=== PATIENT | female | born 1960 | race Caucasian/White ===

== ENCOUNTER 2020-09-02 09:26 | Outpatient (RCR) | payer BC ==
[~2020-09-02] VITALS: Ht 170.2 cm; Wt 78.6 kg
[2020-09-02] MEDS ORDERED: SIMV20TA26 PO (12:21)
[2020-09-02] MEDS ORDERED: BUPR-42 PO (12:21)
[2020-09-02] MEDS ORDERED: MIRA25TA PO (12:21)
[2020-09-02] MEDS ORDERED: CHOL10002 PO (12:21)
[2020-09-02] MEDS ORDERED: ESCI10TA PO (12:21)
[2020-09-02] MEDS ORDERED: OMEP40CA27 PO (12:21)
[2020-09-02] MEDS ORDERED: MELO15TA39 PO (12:21)
== END 2020-09-02 12:39 | disposition home or self-care (01) ==
LOC: PREOP 09:26
PROVIDERS: ATTEND Surgery
DX: Z01.818 Encounter for other preprocedural examination (principal)

== ENCOUNTER → 2020-09-04 | Outpatient (CLI) | payer BC ==
[~2020-09-04] MED LIST: BUPR-42 PO; CHOL10002 PO; ESCI10TA PO; MELO15TA39 PO; MIRA25TA PO; OMEP40CA27 PO; SIMV20TA26 PO
== END ==
LOC: LAB FS 10:20
PROVIDERS: ATTEND Surgery
DX: Z01.812 Encounter for preprocedural laboratory examination (principal); Z20.828 Contact with and (suspected) exposure to other viral communicable diseases
CPT/HCPCS: 87635

== ENCOUNTER 2020-09-07 09:14 | Day surgery (SDC) | payer BC ==
[~2020-09-07] VITALS: Ht 170.2 cm; Wt 78.6 kg
[2020-09-07] MEDS ORDERED: LACTATED RINGERS 1,000 ML IV ONE (09:27)
[2020-09-07] MEDS ORDERED: LACTATED RINGERS 1,000 ML IV STA (09:27)
[2020-09-07 09:30] VITALS: BP 147/94
[2020-09-07] MEDS ORDERED: HURRICAINE EXT TUBE (BENZOCAINE) XX PRN (09:30)
--- NOTE | 2020-09-07 10:02 | Progress Note-Pre Operative ---
Pre-Operative Progress Note H&P Reviewed The H&P was reviewed, patient examined and no changes noted. Time Seen by Provider: 10:00 Date H&P Reviewed: Sep 07, 2020 Time H&P Reviewed: 10:00 Pre-Operative Diagnosis: Epigastric Abd pain RAHEL MASON DO Sep 07, 2020 10:02
[2020-09-07] MEDS ORDERED: MIDAZOLAM 2 MG/2 ML (VERSED) VIAL ONE (10:30)
[2020-09-07] MEDS ORDERED: proPOfol 200 MG/20 ML (DIPRIVAN) VIAL IV ONE (10:30)
[2020-09-07] MEDS ORDERED: LIDOCAINE PF 2% 5 ML (XYLOCAINE) VIAL ONE (10:32)
[2020-09-07 10:50] VITALS: BP 119/70
[2020-09-07 10:55] VITALS: BP 122/76
--- NOTE | 2020-09-07 10:55 | Progress Note-Post Operative ---
Post-Operative Progess Note Surgeon (s)/Branding Machine Tender (s) Surgeon RAHEL MASON DO Branding Machine Tender: none Pre-Operative Diagnosis Epigastric Abd pain Post-Operative Diagnosis Gastritis Hiatal Hernia Procedure & Operative Findings Date of Procedure 09/07/20 Procedure Performed/Findings EGD with bx Anesthesia Type IV sedation by DRUG ABUSE WORKER Estimated Blood Loss Estimated blood loss (mL): scant Specimens/Packing Specimens Removed antral bx body of stomach bx GE jxn bx RAHEL MASON DO Sep 07, 2020 10:55
--- NOTE | 2020-09-07 10:55 | Endoscopy Discharge Instruct ---
Endo Procedure/Findings Findings 1.: Hiatal Hernia 2.: Gastritis Discharge Instructions - Activity: You might feel a little sleepy until tomorrow. This is due to the medicine you received to relax you. Until tomorrow, you should: NOT drive a car, operate machinery or power tools. NOT drink any alcoholic beverages. NOT make any important decisions or sign importortant papers. Do not return to work until tomorrow, unless otherwise instructed. Resume previous activities tomorrow. Diet: Start by taking liquids. If you tolerate liquids, advance to solid food. 1.: EGD in 1 year Notify Physician - If you experience excessive bleeding, unusual abdominal pain, fever, or chest pain, contact your doctor immediately. RAHEL MASON DO Sep 07, 2020 10:55
[2020-09-07 11:00] VITALS: BP 120/81
[2020-09-07 11:20] VITALS: BP 136/93
[2020-09-07 11:30] VITALS: BP 136/93
--- NOTE | 2020-09-07 12:20 | Anesthesia-General Post-Op ---
MAC Patient Condition Mental Status/LOC: Same as Preop Cardiovascular: Satisfactory Nausea/Vomiting: Absent Respiratory: Satisfactory Pain: Controlled Complications: Absent Post Op Complications Complications None Follow Up Care/Instructions Patient Instructions None needed. Anesthesiology Discharge Order Discharge Order Patient is doing well, no complaints, stable vital signs, no apparent adverse anesthesia problems. No complications reported per nursing. EUGENIO MARTIN CRNA Sep 07, 2020 12:20
--- NOTE | 2020-09-08 00:09 | OPERATIVE REPORT ---
DATE OF SERVICE: 09/07/2020 PREOPERATIVE DIAGNOSES: Epigastric pain. POSTOPERATIVE DIAGNOSES: Gastritis, hiatal hernia. PROCEDURE: EGD with biopsy. SURGEON: Desmond Romero DO ACCOUNT REVIEW SPECIALIST: None. ANESTHESIA: IV sedation by the HULL GRINDER. SPECIMEN: Biopsy from the antrum as well as biopsy from the GE junction. BLOOD LOSS: Scant. FLUIDS: Per anesthesia. POSTOPERATIVE CONDITION: Stable. INDICATION FOR PROCEDURE: The patient is a 60-year-old female who has been having some epigastric pain and needed a workup. FINDINGS: The patient had some gastritis and a rather large hiatal hernia, but did not really show any changes of acid at the GE junction. PROCEDURE NOTE: After informed consent was obtained, the patient was brought to the endoscopy suite, placed in bed in left lateral decubitus position. She was administered IV sedation by the HULL GRINDER who then monitored her vitals the entire time, heart rate, blood pressure and pulse ox and the scope was then inserted, placed down the mouth through the esophagus into the stomach. On the way down, noted what looked like hiatal hernia. Pushed into the stomach and able to get into the duodenum. Duodenum looked fine, took a picture. Pulled back and did a biopsy of the antrum, then I believe we did a biopsy of body of stomach and then pulled the scope into the GE junction, could see a large hiatal hernia and actually when we retroflexed in the stomach, could see the hiatal hernia as well, took a picture of both of these spots and then did a biopsy of the GE junction and then pushed the scope back into the stomach, suctioned all the air out and then pulled the scope up the esophagus and out the mouth. The patient tolerated the procedure. She recovered in endoscopy suite. Job ID: [id number] DocumentID: [id number] Dictated Date: 09/07/2020 14:16:04 Detail Technician Date: 09/08/2020 00:09:31 Dictated By: DESMOND ROMERO DO
== END 2020-09-07 11:35 | disposition home or self-care (01) ==
LOC: ENDO 09:14
PROVIDERS: ATTEND Surgery
DX: K29.50 Unspecified chronic gastritis without bleeding (principal); K44.9 Diaphragmatic hernia without obstruction or gangrene; K21.00 Gastro-esophageal reflux disease with esophagitis, without bleeding; F41.9 Anxiety disorder, unspecified; F32.9 Major depressive disorder, single episode, unspecified; D64.9 Anemia, unspecified; Z79.899 Other long term (current) drug therapy; Z88.5 Allergy status to narcotic agent; Z88.8 Allergy status to other drugs, medicaments and biological substances; Z90.710 Acquired absence of both cervix and uterus; Z83.3 Family history of diabetes mellitus
CPT/HCPCS: 88305; 88342

== ENCOUNTER → 2020-10-06 | Outpatient (CLI) | payer BC ==
--- NOTE | 2020-10-06 16:25 | Diagnostic Imaging Report ---
INDICATION: Postmenopausal COMPARISON: None FINDINGS: The bone mineral density of the hips and spine was measured. The T score for the spine is -2.9. This does indicate osteoporosis. The total T score for each hip is -1.2. The T score for each femoral neck is -1.3. These values indicate mild osteopenia. AP Spine L1-L4: [BMD (g/cm2): 0.857] [T-Score: -2.9] [Z-Score: -2.0] [BMD Previous: na] [BMD % Change: na] LT Hip Neck: [BMD (g/cm2): 0.864] [T-Score: -1.3] [Z-Score: -0.3] LT Hip Total: [BMD (g/cm2):0.863] [T-Score:-1.2] [Z-Score: -0.5] [BMD Previous: na] [BMD % Change: na] RT Hip Neck: [BMD (g/cm2):0.853] [T-Score:-1.3] [Z-Score:-0.3] RT Hip Total: [BMD (g/cm2):0.857] [T-score:-1.2] [Z-Score:-0.5] [BMD Previous:na] [BMD % Change:na] *Indicates significant change from prior examination based on 95% confidence level. World Health Organization criteria for BMD interpretation classify patients as Normal (T-score at or above -1.0), Osteopenic (T-score between -1.0 and -2.5) or Osteoporotic (T-score at or below -2.5). LIMITATIONS AND MODIFICATION: None. FRACTURE RISK (FRAX SCORE): The ten year probability of (%): Major Osteoporotic Fracture: [7.8] Hip Fracture: [0.6] IMPRESSION: 1. There is osteoporosis of the spine. 2. The bone mineral density hips and the femoral necks falls within the range of mild osteopenia. 3. See below National Osteoporosis Foundation guidelines on when to potentially initiate pharmacologic therapy. Based on the National Osteoporosis Foundation Guidelines, pharmacologic treatment should be initiated in any of the following, unless clinical conditions suggest otherwise: * Any patient with prior fragility fracture of the hip or vertebrae. A spine fracture indicates 5X risk for subsequent spine fracture and 2X risk for subsequent hip fracture. * Osteoporosis (T-score <-2.5). * Postmenopausal women and men age 50 and older with low bone mass/osteopenia (T-score between -1.0 and -2.5) by DXA and 10-year major osteoporotic fracture greater than 20% or a 10-year probability of hip fracture greater than 3%. These fracture risks are supplied above in the FRAX score, if applicable. * Clinician judgement and/or patient preferences may indicate treatment for people with 10-year fracture probabilities above or below these levels. Dictated by: Dictated on workstation # [id number]
== END ==
LOC: RAD 13:38
PROVIDERS: ATTEND Family Medicine
DX: M81.0 Age-related osteoporosis without current pathological fracture (principal)
CPT/HCPCS: 77080

== ENCOUNTER → 2020-11-19 | Outpatient (CLI) | payer BC ==
--- NOTE | 2020-11-19 10:24 | Diagnostic Imaging Report ---
Indication: Right shoulder pain for 3 weeks. Time of exam: 9:57 AM 3 views of the right shoulder demonstrate normal glenohumeral and acromioclavicular alignment. Acromiohumeral space is normal. No fracture or dislocation is seen. Impression: No acute bony abnormality is detected. Dictated by: Dictated on workstation # [id number]
== END ==
LOC: RAD FS 09:53
PROVIDERS: ATTEND Nurse Practitioner
DX: M25.511 Pain in right shoulder (principal)
CPT/HCPCS: 73030

== ENCOUNTER → 2022-01-19 | Outpatient (CLI) | payer BC ==
[~2022-01-19] MED LIST changes: +CHOL-34 PO; -CHOL10002 PO; -OMEP40CA27 PO; +OMEP40CA6 PO
--- NOTE | 2022-01-19 11:02 | Diagnostic Imaging Report ---
INDICATION: Right shoulder pain. TIME OF EXAM: 10:33 AM. TECHNIQUE: Three views of the right shoulder were obtained. FINDINGS: The glenohumeral and acromioclavicular alignment is normal. The acromiohumeral space is normal. No fracture or dislocation is seen. There are healing fractures of the right posterior 7th and 8th ribs. IMPRESSION: 1. No acute abnormality in the shoulder is identified. 2. Healing right-sided 7th and 8th rib fractures. Dictated by: Dictated on workstation # [id number]
== END ==
LOC: RAD FS 10:23
PROVIDERS: ATTEND Nurse Practitioner
DX: S22.41XD Multiple fractures of ribs, right side, subsequent encounter for fracture with routine healing (principal); X58.XXXD Exposure to other specified factors, subsequent encounter
CPT/HCPCS: 73030

== ENCOUNTER → 2023-08-29 | Outpatient (CLI) | payer BC ==
[~2023-08-29] MED LIST changes: +CETI10TA17 PO; +DEXT1TAB50 PO; +GADOTERATE 0.5 MMOL/ML (CLARISCAN) 20 ML VIAL IV ONE; +HYDR12.56 PO; +SERT-412 PO
--- NOTE | 2023-08-29 11:23 | Diagnostic Imaging Report ---
PROCEDURE: MR imaging of the brain with and without contrast. TECHNIQUE: Multiplanar, multisequence MR imaging of the brain was performed with and without contrast. INDICATION: Abnormal pupil dilations. COMPARISON: none FINDINGS: No acute ischemia, mass, or hemorrhage. No abnormal enhancement. A small amount of focal T2 hyperintense signal seen in the periventricular and subcortical white matter. The ventricles, cortical sulci, and basilar cisterns are symmetric and unremarkable. The sellar and suprasellar regions have a normal appearance. The brainstem and posterior fossa are unremarkable. The paranasal sinuses and mastoid air cells demonstrate normal signal characteristics. The globes and orbits are symmetric and unremarkable. No abnormal enhancement in the globes and orbits. No post septal inflammation. The scalp and calvarium have a normal appearance. IMPRESSION: 1. No acute ischemia, mass, or hemorrhage. No abnormal enhancement. 2. Scattered chronic microvascular disease in the periventricular and subcortical white matter. Dictated by: Dictated on workstation # [id number]
== END ==
LOC: RAD 10:00
PROVIDERS: ATTEND Family Medicine
DX: H57.04 Mydriasis (principal); I67.89 Other cerebrovascular disease
CPT/HCPCS: 70553